=== PATIENT | male | born 1960 | race Caucasian/White ===

== ENCOUNTER 2023-06-09 18:41 | Emergency (ER) | payer SELFPAY ==
[~2023-06-09] VITALS: Ht 165.1 cm; Wt 83.9 kg
[2023-06-09 18:41] VITALS: BP_SYST 119; PULSE 111; RESP 18; TEMP 98.2; O2SAT 93
[2023-06-09 19:55] VITALS: BP_SYST 119; PULSE 111; RESP 18; TEMP 98.2; O2SAT 93
== END 2023-06-09 19:55 ==
LOC: SED 18:41
DX: Z02.89 Encounter for other administrative examinations (principal); Z79.899 Other long term (current) drug therapy
CPT/HCPCS: 99283